=== PATIENT | male | born 1940 | race Caucasian/White ===

== ENCOUNTER 2023-01-08 09:32 | Outpatient (CLI) | payer OTHER | END 2023-01-08 09:34 | disposition home or self-care (01) | LOC: SONOGRAMA 09:32 | PROVIDERS: ATTEND Pathology Anatomic Pathology & Clinical Pathology | DX: D34 Benign neoplasm of thyroid gland (principal); E04.9 Nontoxic goiter, unspecified; E04.1 Nontoxic single thyroid nodule ==